=== PATIENT | female | born 1980 | race Caucasian/White ===

== ENCOUNTER 2019-02-18 05:25 | Inpatient (IN) | payer BC, MEDICAID ==
[~2019-02-18] VITALS: Ht 165.1 cm; Wt 84.1 kg
[2019-02-18] MEDS ORDERED: D5%-LACTATED RINGERS 1,000 ML IV SCH (05:26)
[2019-02-18] MEDS ORDERED: OXYTOCIN 30U/ 0.9% NaCL 500ML 500 ML IV ONE (05:26)
[2019-02-18] MEDS ORDERED: FENTANYL PF 100 MCG/2ML IV PRN (05:30)
[2019-02-18] MEDS ORDERED: ONDANSETRON 2MG/ML, 2ML IVPush PRN (05:30)
[2019-02-18] MEDS ORDERED: METOCLOPRAMIDE 5 MG/ML, 2ML IVPush PRN (05:30)
[2019-02-18] MEDS ORDERED: SODIUM CITRATE/CITRIC ACID 15 ML UDC PO PRN (05:30)
[2019-02-18 05:37] VITALS: BP 111/67
[2019-02-18] MEDS ORDERED: LIDOCAINE 1%, 20ML ONE (05:56)
[2019-02-18] MEDS ORDERED: NEWBORN KIT ONE (05:56)
[2019-02-18] MEDS ORDERED: MISOPROSTOL 200 MCG TABLET ONE (05:56)
[2019-02-18] MEDS ORDERED: OXYTOCIN 30U/ 0.9% NaCL 500ML 500 ML ONE ×2 (05:57→21:47)
[2019-02-18] MEDS ORDERED: MISOPROSTOL 25 MCG TABLET ONE ×2 (06:12→10:29)
[2019-02-18] MEDS: LACTATED RINGERS 1,000 ML IV SCH ×2 (06:28→15:32)
[2019-02-18] MEDS: MISOPROSTOL 25 MCG TABLET PO PRN ×2 (06:28→10:40)
[2019-02-18] MEDS ORDERED: PLEASE ENTER ALLERGIES MC SCH (06:30)
[2019-02-18] MEDS ORDERED: CITA20TA9 PO (06:38)
[2019-02-18] MEDS ORDERED: PREN1TAB60 PO (06:38)
[2019-02-18] MEDS ORDERED: RANI150C PO (06:38)
[2019-02-18 07:01] LABS: BASOPHILS # (AUTO) 0.02 x10^3/uL (0-0.1); BASOPHILS % (AUTO) 0 % (0-1); EOSINOPHILS # (AUTO) 0.13 x10^3/uL (0-0.4); EOSINOPHILS % (AUTO) 1 % (1-7); LYMPHOCYTES # (AUTO) 2.56 x10^3/uL (1-3.4); LYMPHOCYTES % (AUTO) 21 % (22-44); MD SCAN; MEAN CORPUSCULAR HEMOGLOBIN 21.1 pg (27.0-34.8); MEAN CORPUSCULAR HGB CONC 30.1 g/dL (32.4-35.8); MEAN CORPUSCULAR VOLUME 70.2 fL (80-100); MEAN PLATELET VOLUME 11.7 fL (7.4-10.4); MONOCYTES # (AUTO) 0.82 x10^3/uL (0.2-0.8); MONOCYTES % (AUTO) 7 % (2-9); NEUTROPHILS # (AUTO) 8.43 x10^3/uL (1.8-6.8); NEUTROPHILS % (AUTO) 71 % (42-75); PLATELET COUNT 230 x10^3/uL (130-400); RED BLOOD COUNT 4.33 x10^6/uL (3.82-5.3); RED CELL DISTRIBUTION WIDTH 16.4 % (9.6-15.2)
[2019-02-18] MEDS ORDERED: FENTANYL PF 100 MCG/2ML ONE ×2 (15:29→17:12)
[2019-02-18] MEDS: FENTANYL PF 100 MCG/2ML IVPush PRN ×2 (15:33→17:15)
[2019-02-18] MEDS ORDERED: hydrOXYzine 50 MG/ML IM PRN (16:00)
[2019-02-18] MEDS ORDERED: FENTANYL/BUPIV./NS/PF 250 ML EPIDCONT SCH ×2 (17:36→17:54)
[2019-02-18] MEDS ORDERED: LACTATED RINGERS 1,000 ML IV SCH (17:54)
[2019-02-18] MEDS ORDERED: EPHEDRINE 50 MG/ML, 1ML IVPush PRN (18:00)
[2019-02-18] MEDS ORDERED: FENTANYL PF 500 MCG, BUPIVACAINE/PF 0.5%, 30ML 62.5 ML in SODIUM CHLORIDE 0.9% 177.5 ML EPIDCONT SCH (18:00)
[2019-02-18] MEDS ORDERED: NALOXONE 0.4 MG/ML, 1ML IVPush PRN (18:00)
[2019-02-18] MEDS ORDERED: LACTATED RINGERS 1,000 ML IVBOLUS PRN (18:00)
[2019-02-18] MEDS ORDERED: ACETAMINOPHEN 325 MG TABLET PO PRN ×3 (20:00→21:00)
[2019-02-18] MEDS ORDERED: ACETAMINOPHEN 325 MG TABLET ONE (20:01)
[2019-02-18 21:00] VITALS: BP 133/89
[2019-02-18] MEDS ORDERED: OXYcodone/APAP 5/325MG TABLET PO PRN (21:00)
[2019-02-18] MEDS ORDERED: METHYLERGONOVINE 0.2 MG/ML IM PRN (21:00)
[2019-02-18] MEDS ORDERED: ONDANSETRON 2MG/ML, 2ML IV PRN (21:00)
[2019-02-18] MEDS ORDERED: MAGNESIUM HYDROXIDE 8%, 30ML UDC PO PRN (21:00)
[2019-02-18] MEDS ORDERED: OXYTOCIN 10 UNITS/ML, 1ML IM PRN (21:00)
[2019-02-18] MEDS ORDERED: CALCIUM CARBONATE 500 MG TAB.CHEW PO PRN (21:00)
[2019-02-18] MEDS ORDERED: IBUPROFEN 600 MG TABLET ONE (21:11)
[2019-02-18] MEDS ORDERED: IBUPROFEN 800 MG TABLET ONE (21:17)
[2019-02-18] MEDS: IBUPROFEN 800 MG TABLET PO PRN (21:17)
[2019-02-18] MEDS: OXYTOCIN 30U/ 0.9% NaCL 500ML 500 ML IV SCH (21:50)
[2019-02-18 22:45] VITALS: BP 112/69
[2019-02-19 04:30] VITALS: BP 108/73
[2019-02-19] MEDS: OXYcodone/APAP 5/325MG TABLET PO PRN ×4 (04:36→21:43)
[2019-02-19] MEDS: IBUPROFEN 800 MG TABLET PO PRN ×3 (04:37→21:43)
[2019-02-19 06:14] LABS: MEAN CORPUSCULAR HEMOGLOBIN 21.8 pg (27.0-34.8); MEAN CORPUSCULAR HGB CONC 30.6 g/dL (32.4-35.8); MEAN CORPUSCULAR VOLUME 71.1 fL (80-100); MEAN PLATELET VOLUME 11.6 fL (7.4-10.4); PLATELET COUNT 195 x10^3/uL (130-400); RED BLOOD COUNT 4.09 x10^6/uL (3.82-5.3); RED CELL DISTRIBUTION WIDTH 15.8 % (9.6-15.2)
[2019-02-19 06:16] LABS: BASOPHILS # (AUTO) 0.04 x10^3/uL (0-0.1); BASOPHILS % (AUTO) 0 % (0-1); EOSINOPHILS # (AUTO) 0.06 x10^3/uL (0-0.4); EOSINOPHILS % (AUTO) 0 % (1-7); LYMPHOCYTES % (AUTO) 13 % (22-44); MD SCAN; MONOCYTES % (AUTO) 7 % (2-9); NEUTROPHILS # (AUTO) 11.76 x10^3/uL (1.8-6.8); NEUTROPHILS % (AUTO) 80 % (42-75)
[2019-02-19] MEDS: OXYTOCIN 30U/ 0.9% NaCL 500ML 500 ML IV SCH ×2 (06:51→16:51)
[2019-02-19 07:30] VITALS: BP 102/66
[2019-02-19] MEDS: DOCUSATE 100 MG CAPSULE PO PRN ×2 (08:29→21:43)
[2019-02-19] MEDS: PRENATAL VIT/IRON/FA 1 EACH TABLET PO SCH (08:29)
[2019-02-19 12:00] VITALS: BP 101/54
[2019-02-19] MEDS ORDERED: PANTOPROZOLE 40MG TABLET ONE (16:25)
[2019-02-19 17:15] VITALS: BP 105/67
[2019-02-19 19:55] VITALS: BP 104/62
[2019-02-20] MEDS: OXYTOCIN 30U/ 0.9% NaCL 500ML 500 ML IV SCH (02:51)
[2019-02-20] MEDS: OXYcodone/APAP 5/325MG TABLET PO PRN ×2 (05:01→09:42)
[2019-02-20 07:49] VITALS: BP 100/65
[2019-02-20] MEDS: IBUPROFEN 800 MG TABLET PO PRN (08:19)
[2019-02-20] MEDS: DOCUSATE 100 MG CAPSULE PO PRN (08:19)
[2019-02-20] MEDS: PRENATAL VIT/IRON/FA 1 EACH TABLET PO SCH (08:19)
[2019-02-20] MEDS ORDERED: IBUP-1222 PO (10:33)
[2019-02-20] MEDS ORDERED: DOCU-131 PO (10:33)
[2019-02-20] MEDS ORDERED: FERR325T23 PO (10:33)
[2019-02-20] MEDS ORDERED: OXYC-302 PO (10:33)
== END 2019-02-20 11:25 | disposition home or self-care (01) | DRG 807 ==
LOC: LDIP 05:25 → 2NW 22:40
PROVIDERS: ADMIT Obstetrics & Gynecology; ATTEND Obstetrics & Gynecology
PROC: 10E0XZZ Delivery of Products of Conception, External Approach (ICD-10-PCS; principal; 2019-02-18)
PROC: 0HQ9XZZ Repair Perineum Skin, External Approach (ICD-10-PCS; 2019-02-18)
PROC: 3E0R3BZ Introduction of Anesthetic Agent into Spinal Canal, Percutaneous Approach (ICD-10-PCS; 2019-02-18)
PROC: 00HU33Z Insertion of Infusion Device into Spinal Canal, Percutaneous Approach (ICD-10-PCS; 2019-02-18)
DX: O70.0 First degree perineal laceration during delivery (principal); Z37.0 Single live birth; Z3A.39 39 weeks gestation of pregnancy
CPT/HCPCS: 36415; 85025; 86850; 86900; G0378; J3010; J2590; J7120

== ENCOUNTER 2019-05-06 05:15 | Day surgery (SDC) | payer BC, MEDICAID ==
[~2019-05-06] VITALS: Ht 165.1 cm; Wt 76.6 kg
[~2019-05-06 05:15] MED LIST: CITA20TA9 PO; DOCU-131 PO; FERR325T23 PO; IBUP-1222 PO; OXYC-302 PO; PREN1TAB60 PO; RANI150C PO
[2019-05-06] MEDS ORDERED: LACTATED RINGERS 1,000 ML IV SCH (05:53)
[2019-05-06 05:57] VITALS: BP 103/70
[2019-05-06 06:01] LABS: HCG UR SG 1.031 (1.003-1.030)
[2019-05-06] MEDS ORDERED: EPINEPHRINE 1 MG/ML, 1ML ONE (06:27)
[2019-05-06] MEDS ORDERED: BUPIVACAINE/PF 0.25% ONE (06:27)
[2019-05-06] MEDS ORDERED: MIDAZOLAM 1 MG/ML, 2ML ONE (06:49)
[2019-05-06] MEDS ORDERED: FENTANYL PF 250 MCG/5ML ONE (06:53)
[2019-05-06] MEDS ORDERED: PROPOFOL 50 ML ONE (07:11)
[2019-05-06] MEDS ORDERED: HYDROmorphone 2 MG/ML, 1ML IVPush PRN (07:30)
[2019-05-06] MEDS ORDERED: PROMETHAZINE 25 MG/ML, 1ML IV PRN (07:30)
[2019-05-06] MEDS ORDERED: ONDANSETRON ODT 8 MG PO PRN (07:30)
[2019-05-06] MEDS ORDERED: ACETAMINOPHEN 325 MG TABLET PO PRN (07:30)
[2019-05-06] MEDS ORDERED: ONDANSETRON 2MG/ML, 2ML IV PRN (07:30)
[2019-05-06] MEDS ORDERED: OXYcodone 5 MG/5 ML ORAL.SOL UDC PO PRN (07:30)
[2019-05-06] MEDS ORDERED: DIAZEPAM 5 MG/ML, 2ML IVPush PRN (07:30)
[2019-05-06] MEDS ORDERED: BUPIVACAINE/PF-EPI 0.25% 1:200K INFIL ONE (07:34)
[2019-05-06] MEDS ORDERED: GLYCOPYRROLATE 0.2MG/1ML, 5ML ONE (07:58)
[2019-05-06] MEDS ORDERED: NEOSTIGMINE 1 MG/ML, 10ML ONE (07:58)
[2019-05-06] MEDS ORDERED: DEXAMETHASONE 4 MG/ML, 1ML ONE (07:58)
[2019-05-06] MEDS ORDERED: ROCURONIUM 10MG/ML,5ML ONE (07:58)
[2019-05-06] MEDS ORDERED: ONDANSETRON 2MG/ML, 2ML ONE (07:58)
[2019-05-06] MEDS ORDERED: PROPOFOL 10 MG/ML, 20ML ONE (07:58)
[2019-05-06] MEDS ORDERED: CEFAZOLIN 1,000 MG ONE (07:58)
[2019-05-06] MEDS ORDERED: SUCCINYLCHOLINE 20 MG/ML, 10ML ONE (07:58)
[2019-05-06] MEDS ORDERED: KETOROLAC 30 MG/1 ML ONE (08:14)
[2019-05-06] MEDS ORDERED: ACETAMINOPHEN 650 MG/20.3 ML UDC ONE (08:20)
[2019-05-06] MEDS ORDERED: OXYcodone 5 MG/5 ML ORAL.SOL UDC ONE (08:20)
[2019-05-06] MEDS ORDERED: FENTANYL PF 100 MCG/2ML ONE (08:20)
[2019-05-06] MEDS: FENTANYL PF 100 MCG/2ML IV PRN ×2 (08:25→08:37)
[2019-05-06] MEDS ORDERED: KETOROLAC 30 MG/1 ML IVPush ONE (08:30)
== END 2019-05-06 10:28 | disposition home or self-care (01) ==
LOC: OUT 05:15
PROVIDERS: ATTEND Obstetrics & Gynecology
DX: Z30.2 Encounter for sterilization (principal); Z79.899 Other long term (current) drug therapy
CPT/HCPCS: 58670; 81025; 88302; J0171; J0330; J0690; J1100; J1885; J2250; J2405; J2704; J2710; J3010; J3490; J7120